=== PATIENT | male | born 1940 | race Caucasian/White ===

== ENCOUNTER → 2016-10-23 | Outpatient (CLI) | payer MEDICARE ==
[~2016-10-23] MED LIST: AMLO1CAP5; ATOR10TA PO; BIMA2.5D3; CYCL1DRO OP; LEVO500T69; METR500T
--- NOTE | 2016-10-25 09:36 | ECHOCARDIOGRAPHY REPORT ---
PROCEDURE PHYSICIAN: IVA CLINE DATE OF PROCEDURE: 10/23/2016 TWO DIMENSIONAL ECHOCARDIOGRAM REPORT PRIMARY PHYSICIAN: OTHER PHYSICIAN: REFERRING PHYSICIAN: Dr. Hwang ORDERING PHYSICIAN: INDICATION FOR THE PROCEDURE: Aortic regurgitation. MEASUREMENTS DERIVED VALUES LV DIAMETER (LAX) NORMALS NORMALS Diastolic 4.8 (3.6-5.2) Eject. Fract. 60% (60%+/-6%) Systolic (2.3-3.9) Diastolic Vol. % Shortening (0.22-0.42) Systolic Vol. Aortic Root IVS THICKNESS Diastolic 1.3 (0.6-1.1) LVPW THICKNESS Diastolic 1.3 (0.6-1.1) LA DIAMETER Systolic 3.9 (2.1-3.7) FINDINGS: 1. Technically difficult study. 2. The left ventricle is normal in size with moderate left ventricular hypertrophy noted diffusely. Systolic function appeared to be preserved, endocardium was not well visualized in all segments. Estimated ejection fraction 60%. 3. The left atrium is in the upper normal limit in size. No clot or thrombus were seen within the left atrium. 4. The right atrium and right ventricle are normal in size. No clot or thrombus were seen within the right side. 5. Mitral valve is calcified. There is no mitral valve prolapse. No mitral valve stenosis. 6. Aortic valve is heavily calcified, still having some leaflet separation during systole. Doppler across the aortic valve estimated the peak gradient of 49 mmHg, mean gradient of 27 mmHg, calculated valve area of 1.2 sq cm which is moderate aortic valve stenosis. Mild aortic regurgitation noted by color Doppler flow. 7. Tricuspid valve is normal in morphology with mild tricuspid regurgitation noted by color Doppler flow. Doppler across tricuspid valve estimated pulmonary artery pressure of 27+ right atrial pressure. 8. Pulmonic valve is functioning normally. 9. No pericardial effusion. IN CONCLUSION: 1. Moderate left ventricular hypertrophy noted diffusely. Systolic function appeared to be normal. Estimated ejection fraction 60%. Endocardium was not well visualized in all segments. 2. Moderate aortic valve stenosis, did not change significantly compared to the study of 2014. Mild aortic regurgitation. 3. Calcified mitral valve with mild mitral regurgitation, mild tricuspid regurgitation. 4. Left atrium is in the upper normal limit in size. 5. Estimated pulmonary artery pressure of 35 mmHg. Job ID: [id number] Dictated Date: 10/24/2016 14:48:08 Steeping Press Tender Date: 10/25/2016 09:32:41 / jackelyn
== END ==
LOC: CARD 09:31
PROVIDERS: ATTEND Internal Medicine Cardiovascular Disease
DX: I35.1 Nonrheumatic aortic (valve) insufficiency (principal); I11.0 Hypertensive heart disease with heart failure; I50.22 Chronic systolic (congestive) heart failure; E78.2 Mixed hyperlipidemia
CPT/HCPCS: 93306

== ENCOUNTER 2017-09-03 11:41 | Observation (INO) | payer MEDICARE, OTHER ==
[2017-09-03] VITALS (8 sets, daily range): BP systolic 162–188; BP diastolic 76–104
[~2017-09-03] VITALS: Ht 180.3 cm; Wt 123.8 kg
[~2017-09-03 11:41] MED LIST changes: -CYCL1DRO OP; +CYCL1DRO OU
[2017-09-03] MEDS ORDERED: LACTATED RINGERS 1,000 ML IV ONE (11:51)
--- OUTSIDE RECORDS SUMMARY | 2017-09-03 11:54 | XMS REPORT | Continuity of Care Document ---
Author Author [facility] Organization [facility] Address Unknown Phone Unavailable Allergies Active Description Code Type Severity Reaction Onset Reported/Identified Relationship to Patient Clinical Status Yes No Known Drug Allergies [id number] Drug Allergy Unknown N/A 07/23/2009 Medications There is no data. Problems Date Dx Coded Attending Type Code Diagnosis Diagnosed By 06/12/2015 WILLOUGHBY DO Ot E66.9 06/12/2015 WILLOUGHBY DO Ot E78.5 06/12/2015 WILLOUGHBY DO Ot G47.33 06/12/2015 WILLOUGHBY DO Ot I10 06/12/2015 WILLOUGHBY DO Ot I35.0 06/12/2015 WILLOUGHBY DO Ot I48.0 06/12/2015 WILLOUGHBY DO Ot K21.0 06/12/2015 WILLOUGHBY DO Ot Z68.38 06/12/2015 WILLOUGHBY DO Ot Z87.891 06/12/2015 WILLOUGHBY DO Ot Z91.14 10/24/2016 IVA CLINE MD Ot E78.2 MIXED HYPERLIPIDEMIA 10/24/2016 IVA CLINE MD Ot I11.0 HYPERTENSIVE HEART DISEASE WITH HEART FA 10/24/2016 IVA CLINE MD Ot I35.1 NONRHEUMATIC AORTIC (VALVE) INSUFFICIENC 10/24/2016 IVA CLINE MD Ot I50.22 CHRONIC SYSTOLIC (CONGESTIVE) HEART FAIL 10/24/2016 IVA CLINE MD Ot E78.2 MIXED HYPERLIPIDEMIA 10/24/2016 IVA CLINE MD Ot I11.0 HYPERTENSIVE HEART DISEASE WITH HEART FA 10/24/2016 IVA CLINE MD Ot I35.1 NONRHEUMATIC AORTIC (VALVE) INSUFFICIENC 10/24/2016 IVA CLINE MD Ot I50.22 CHRONIC SYSTOLIC (CONGESTIVE) HEART FAIL 11/23/2016 IVA CLINE MD Ot E78.2 MIXED HYPERLIPIDEMIA 11/23/2016 IVA CLINE MD Ot I11.0 HYPERTENSIVE HEART DISEASE WITH HEART FA 11/23/2016 IVA CLINE MD Ot I35.1 NONRHEUMATIC AORTIC (VALVE) INSUFFICIENC 11/23/2016 IVA CLINE MD Ot I50.22 CHRONIC SYSTOLIC (CONGESTIVE) HEART FAIL Procedures There is no data. Results There is no data. Encounters ACCT No. Visit Date/Time Discharge Status Pt. Type Provider Facility Loc./Unit Complaint [id number] 10/23/2016 09:31:00 10/23/2016 23:59:59 CLS Outpatient IVA CLINE MD [facility] CARD AR,CHF,HTN [id number] 06/11/2015 18:02:00 06/12/2015 17:00:00 DIS Inpatient SUNDAY WILLOUGHBY DO [address] [id number] 07/24/2013 20:50:00 07/25/2013 07:10:00 DIS Outpatient [id number] 11/01/2012 13:53:00 11/01/2012 23:59:59 CLS Outpatient
[2017-09-03 11:59] LABS: BASOPHILS # (AUTO) 0.1 10^3/uL (0.0-0.1); BASOPHILS % (AUTO) 1 % (0-10); EOSINOPHILS # (AUTO) 0.1 10^3/uL (0.0-0.3); EOSINOPHILS % (AUTO) 1 % (0-10); HEMATOCRIT 47 % (40-54); HEMOGLOBIN 15.8 G/DL (13.3-17.7); LYMPHOCYTES # (AUTO) 1.5 X 10^3 (1.0-4.0); LYMPHOCYTES % (AUTO) 20 % (12-44); MEAN CORPUSCULAR HEMOGLOBIN 31 PG (25-34); MEAN CORPUSCULAR HGB CONC 34 G/DL (32-36); MEAN CORPUSCULAR VOLUME 91 FL (80-99); MEAN PLATELET VOLUME 11.6 FL (7.4-10.4); MONOCYTES # (AUTO) 0.8 X 10^3 (0.0-1.0); MONOCYTES % (AUTO) 11 % (0-12); NEUTROPHILS # (AUTO) 5.2 X 10^3 (1.8-7.8); NEUTROPHILS % (AUTO) 68 % (42-75); PLATELET COUNT 165 10^3/uL (130-400); RED BLOOD COUNT 5.15 10^6/uL (4.35-5.85); RED CELL DISTRIBUTION WIDTH 14.7 % (10.0-14.5); WHITE BLOOD COUNT 7.6 10^3/uL (4.3-11.0)
--- NOTE | 2017-09-03 11:59 | ED Chest Pain ---
General Stated Complaint: CP/SOB Source: patient, spouse Exam Limitations: no limitations History of Present Illness Date Seen by Provider: Sep 03, 2017 Time Seen by Provider: 11:42 Initial Comments Patient presents to the ER by private conveyance with chief complaint of chest pain and shortness of breath started about an hour prior to arrival. He tried calling his primary care physician but they did not answer so he came to the ER. He says he does not have a history of coronary artery disease. He quit smoking decades ago. He does not have diabetes but he does have high blood pressure and takes benazepril which she did take his morning. He does not take a cholesterol medicine or aspirin however his gave him 325 mg of aspirin which she swallowed prior to arrival. He did not have any sweats, fevers, chills or nausea nor radiation of pain. He describes it as being substernal epigastric and first he thought it was from his bronchial tubes getting wrinkled from the way he was laying. He took a famotidine tablet on his way in but that has not helped yet. He does not have nitroglycerin at home. 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 He has had a thoracotomy in 1994 because they thought he might have lung cancer and did some biopsies of lymph nodes that turned out to be nonmalignant. He does not have a cough. He is having no diarrhea or other abdominal pain. He's had no abdominal surgeries. He does wear CPAP for obstructive sleep apnea endorse a history of COPD, asthma or other structural lung disease. He says after a case of diverticulitis many years ago he had an incidence of atrial fibrillation and they had shocked him however he has never had issues with that before or since and does not use any blood thinners. Last bowel movement was this morning, normal formed. Allergies and Home Medications Allergies Coded Allergies: No Known Drug Allergies (Verified , 07/23/09) Home Medications Atorvastatin Calcium 10 Mg Tablet, 10 MG PO EVERY OTHER DAY, (Reported) Benazepril HCl 40 Mg Tab, 40 MG PO DAILY, (Reported) Cyclosporine 1 Each Droperette, 1 EACH OP DAILY, (Reported) Review of Systems Constitutional: No chills, No diaphoresis, No fever, No malaise EENTM: No Blurred Vision, No Double Vision Respiratory: Denies Cough, Shortness of Air, Denies Stridor, Denies Wheezing Cardiovascular: See HPI, Chest Pain, Denies Edema, Denies Irregular Heart Rate , Denies Palpitations, Denies Syncope Gastrointestinal: Denies Abdomen Distended, Denies Abdominal Pain, Denies Constipated, Denies Diarrhea, Denies Nausea, Denies Vomiting Musculoskeletal: No back pain, No joint pain Skin: No pruritus, No rash Psychiatric/Neurological: Denies Headache, Denies Numbness, Denies Paresthesia Past Kzzijrl-Ckaadr-Lsatis Hx Patient Social History Recreational Drug Use: No Smoking Status: Former Smoker Type Used: Cigarettes Recent Foreign Travel: No Contact w/Someone Who Travel: No Immunizations Up To Date Date of Influenza Vaccine: May 09, 2015 Respiratory Respiratory Disorders: Sleep Apnea Currently Using CPAP: Yes Cardiovascular Cardiac Disorders: Atrial Fibrillation, Heart Murmur, Hypertension Neurological Neurological Disorders: Brain Tumor Reproductive System Hx Reproductive Disorders: No Sexually Transmitted Disease: No HIV/AIDS: No Gastrointestinal Gastrointestinal Disorders: Gastroesophageal Reflux Musculoskeletal Musculoskeletal Disorders: Arthritis HEENT HEENT Disorders: Glaucoma Loss of Vision: Denies Hearing Impairment: Denies Physical Exam Vital Signs Vital Signs - First Documented 09/03/17 09/03/17 11:45 12:04 Temp 98.9 Pulse 80 Resp 15 B/P (MAP) 207/113 (144) Pulse Ox 95 O2 Delivery Nasal Cannula O2 Flow Rate 2.00 Capillary Refill : General Appearance: No Apparent Distress, WD/WN, Anxious HEENT: PERRL/EOMI, Pharynx Normal (oral mucosa is dry.) Neck: Full Range of Motion, Non Tender, Supple Respiratory: Chest Non Tender, Lungs Clear, Normal Breath Sounds, No Accessory Muscle Use, No Respiratory Distress Cardiovascular: Regular Rate, Rhythm, No Edema, No JVD, Normal Peripheral Pulses Gastrointestinal: Normal Bowel Sounds, No Organomegaly, Non Tender, Soft Extremity: Normal Capillary Refill, Normal Inspection, Non Tender, No Calf Tenderness, No Pedal Edema Neurologic/Psychiatric: Alert, Oriented x3, No Motor/Sensory Deficits, Normal Mood/Affect Skin: Normal Color, Warm/Dry Progress/Results/Core Measures Results/Orders Lab Results Laboratory Tests Test 09/03/17 11:51 Range/Units White Blood Count 7.6 4.3-11.0 10^3/uL Red Blood Count 5.15 4.35-5.85 10^6/uL Hemoglobin 15.8 13.3-17.7 G/DL Hematocrit 47 40-54 % Mean Corpuscular Volume 91 80-99 FL Mean Corpuscular Hemoglobin 31 25-34 PG Mean Corpuscular Hemoglobin Concent 34 32-36 G/DL Red Cell Distribution Width 14.7 H 10.0-14.5 % Platelet Count 165 130-400 10^3/uL Mean Platelet Volume 11.6 H 7.4-10.4 FL Neutrophils (%) (Auto) 68 42-75 % Lymphocytes (%) (Auto) 20 12-44 % Monocytes (%) (Auto) 11 0-12 % Eosinophils (%) (Auto) 1 0-10 % Basophils (%) (Auto) 1 0-10 % Neutrophils # (Auto) 5.2 1.8-7.8 X 10^3 Lymphocytes # (Auto) 1.5 1.0-4.0 X 10^3 Monocytes # (Auto) 0.8 0.0-1.0 X 10^3 Eosinophils # (Auto) 0.1 0.0-0.3 10^3/uL Basophils # (Auto) 0.1 0.0-0.1 10^3/uL Prothrombin Time 15.7 H 12.2-14.7 SEC INR Comment 1.2 0.8-1.4 Activated Partial Thromboplast Time 31 24-35 SEC Sodium Level 142 135-145 MMOL/L Potassium Level 4.0 3.6-5.0 MMOL/L Chloride Level 107 98-107 MMOL/L Carbon Dioxide Level 23 21-32 MMOL/L Anion Gap 12 5-14 MMOL/L Blood Urea Nitrogen 13 7-18 MG/DL Creatinine 1.03 0.60-1.30 MG/DL Estimat Glomerular Filtration Rate > 60 BUN/Creatinine Ratio 13 Glucose Level 102 70-105 MG/DL Calcium Level 9.8 8.5-10.1 MG/DL Magnesium Level 2.0 1.8-2.4 MG/DL Total Bilirubin 1.9 H 0.1-1.0 MG/DL Aspartate Amino Transf (AST/SGOT) 24 5-34 U/L Alanine Aminotransferase (ALT/SGPT) 20 0-55 U/L Alkaline Phosphatase 91 40-136 U/L Myoglobin 91.5 10.0-92.0 NG/ML Troponin I < 0.30 <0.30 NG/ML Total Protein 6.8 6.4-8.2 GM/DL Albumin 4.1 3.2-4.5 GM/DL Lipase 12 8-78 U/L My Orders Orders - ABDIEL HART Tariq Cbc With Automated Diff (09/03/17 11:51) Magnesium (09/03/17 11:51) Chest 1 View, Ap/Pa Only (09/03/17 11:51) Ekg Tracing (09/03/17 11:51) Cardiac Profile 1 (09/03/17 11:51) Comprehensive Metabolic Panel (09/03/17 11:51) Myoglobin Serum (09/03/17 11:51) Protime With Inr (09/03/17 11:51) Partial Thromboplastin Time (09/03/17 11:51) O2 (09/03/17 11:51) Monitor-Rhythm Ecg Trace Only (09/03/17 11:51) Lipid Panel (09/04/17 06:00) Aspirin Chewable Tablet (Baby Aspirin Ch (09/03/17 12:00) Nitroglycerin 0.4 Mg Btl 25's (Nitrostat (09/03/17 12:00) Saline Lock/Iv-Start (09/03/17 11:51) Lipase (09/03/17 11:51) Saline Lock/Iv-Start (09/03/17 11:51) Lactated Ringers (Lr 1000 Ml Iv Solution (09/03/17 11:51) Medications Given in ED Current Medications Medications Dose Ordered Sig/Rui Route Start Time Stop Time Status Last Admin Dose Admin Aspirin 162 mg ONCE ONCE PO 09/03/17 12:00 09/03/17 12:01 DC 09/03/17 11:59 162 MG Lactated Ringer's 1,000 ml @ 0 mls/hr Q0M ONCE IV 09/03/17 11:51 09/03/17 11:54 DC 09/03/17 11:59 0 MLS/HR Nitroglycerin 0.4 mg UD PRN SL 09/03/17 12:00 09/03/17 11:59 0.4 MG Vital Signs/I&O Vital Sign - Last 12Hours 09/03/17 09/03/17 11:45 12:04 Temp 98.9 Pulse 80 Resp 15 B/P (MAP) 207/113 (144) Pulse Ox 95 95 O2 Delivery Nasal Cannula Nasal Cannula O2 Flow Rate 2.00 2.00 Progress Note #1: Time: 12:01 Progress Note ED ACS score of 22 points which is not low risk and he'll probably benefit from observation stay his initial troponin is negative. While he is having mild tachycardia, shortness of breath and chest pain he does not have any evidence of a DVT or reason to have one. He is not in atrial fibrillation presently. Pulmonary embolus is not the most likely cause of his pain. We'll think about cardiogenic versus respiratory versus GI causes. If the nitroglycerin does not make a difference in his pain will try a GI cocktail. We'll going to go ahead and give him another 162 mg of aspirin despite him receiving 325 at home and have him chew up the aspirin and swallow. Progress Note #2: Time: 13:14 Progress Note Patient has a history of GERD which may be causing bronchospasms or may be organic chest pain to the heart. Because of his risk factors will merit an overnight stay which he is willing to do. However if his pain is not cardiogenic likely benefit from medical management and an EGD outpatient. ECG Initial ECG Impression Date: Sep 03, 2017 Initial ECG Impression Time: 11:42 Initial ECG Rate: 107 Initial ECG Rhythm: S.Tach Initial ECG Intervals: QT (51.) Initial ECG Impression: Nonspecific Changes Initial ECG Comparisson: Unchanged Diagnostic Imaging Diagonstic Imaging: Xray Plain Films/CT/US/NM/MRI: chest (1v) Comments [facility]. [place], [place] NAME: JOSEE ESCOBEDO [facility] REC#: [id number] PT STATUS: REG ER : 1940 PHYSICIAN: ABDIEL HART MD ADMIT DATE: 09/03/17/ER Draft Date of Exam:09/03/17 CHEST 1 VIEW, AP/PA ONLY INDICATION: Chest pain. Shortness of air. COMPARISON: 06/11/2015. FINDINGS: Single frontal radiographic view of the chest was obtained and demonstrates moderate cardiomegaly. Pulmonary vasculature is within normal limits. Lung brown are partially obscured secondary to overlying soft tissue attenuation, but no focal alveolar consolidation, large effusion, or pneumothorax is identified. Bony structures show no gross acute abnormalities. IMPRESSION: 1. Moderate cardiomegaly, but no evidence of overt failure. Dictated on workstation # [id number] Dict: 09/03/17 1245 Trans: 09/03/17 1251 [id number] Interpreted by: CHRISTIANE HODGES MD Electronically signed by: Reviewed: Reviewed by Me Departure Communication (Admissions) Time/Spoke to Admitting Phy: 13:[address] Hamm; discussed the case and EKG lab findings and plan to do an observation stay. Time/Spoke to Consulting Phy: 13:16 Communication/Consulting Dr. Delgado says he'll see the patient probably after clinic today. He agrees with observation stay. Impression Impression: Primary Impression: Chest pain Qualified Codes: R07.9 - Chest pain, unspecified Additional Impression: Gastroesophageal reflux disease Qualified Codes: K21.9 - Gastro-esophageal reflux disease without esophagitis Disposition: ADMITTED INPATIENT Condition: Stable Admissions Decision to Admit Reason: Admit from ER (General) Decision to Admit/Date: Sep 03, 2017 Time/Decision to Admit Time: 13:18 Departure-Patient Inst. Referrals: SUNDAY WILLOUGHBY DO (PCP/Family) Primary Care Physician Copy Copies To 1: IVA DELGADO MD Copies To 2: SUNDAY WILLOUGHBY TITUS J Sep 03, 2017 11:59
[2017-09-03] MEDS ORDERED: NITROGLYCERIN 0.4 MG SL TABS BTL 25'S SL PRN (12:00)
[2017-09-03] MEDS ORDERED: ASPIRIN 81 MG CHEW (CHILDREN'S ASA) PO ONE (12:00)
[2017-09-03 12:10] LABS: INR 1.2 (0.8-1.4); PROTHROMBIN TIME PATIENT 15.7 SEC (12.2-14.7)
[2017-09-03] MEDS ORDERED: BNZ40T PO (12:17)
[2017-09-03 12:19] LABS: ALANINE AMINOTRANSFERASE 20 U/L (0-55); ALBUMIN 4.1 GM/DL (3.2-4.5); ALKALINE PHOSPHATASE 91 U/L (40-136); BILIRUBIN,TOTAL 1.9 MG/DL (0.1-1.0); BUN/CREATININE RATIO 13; CALCIUM 9.8 MG/DL (8.5-10.1); CARBON DIOXIDE 23 MMOL/L (21-32); CHLORIDE 107 MMOL/L (98-107); CREATININE SERUM 1.03 MG/DL (0.60-1.30); GFR ESTIMATED > 60; GLUCOSE 102 MG/DL (70-105); LIPASE 12 U/L (8-78); SODIUM 142 MMOL/L (135-145); TOTAL PROTEIN 6.8 GM/DL (6.4-8.2)
[2017-09-03 12:25] LABS: MYOGLOBIN SERUM 91.5 NG/ML (10.0-92.0)
--- NOTE | 2017-09-03 12:52 | Diagnostic Imaging Report ---
INDICATION: Chest pain. Shortness of air. COMPARISON: 06/11/2015. FINDINGS: Single frontal radiographic view of the chest was obtained and demonstrates moderate cardiomegaly. Pulmonary vasculature is within normal limits. Lung borwn are partially obscured secondary to overlying soft tissue attenuation, but no focal alveolar consolidation, large effusion, or pneumothorax is identified. Bony structures show no gross acute abnormalities. IMPRESSION: 1. Moderate cardiomegaly, but no evidence of overt failure. Dictated by: Dictated on workstation # [id number]
--- OUTSIDE RECORDS SUMMARY | 2017-09-03 13:51 | XMS REPORT | Continuity of Care Document ---
Author Author [facility] Organization [facility] Address Unknown Phone Unavailable Allergies Active Description Code Type Severity Reaction Onset Reported/Identified Relationship to Patient Clinical Status Yes No Known Drug Allergies [id number] Drug Allergy Unknown N/A 07/23/2009 Medications There [...] SYSTOLIC (CONGESTIVE) HEART FAIL 11/23/2016 IVA CLINE MD, Ot E78.2 MIXED HYPERLIPIDEMIA 11/23/2016 IVA CLINE MD, Ot I11.0 HYPERTENSIVE HEART DISEASE WITH HEART FA 11/23/2016 IVA CLINE MD, Ot I35.1 NONRHEUMATIC AORTIC (VALVE) INSUFFICIENC 11/23/2016 IVA CLINE MD, Ot I50.22 CHRONIC SYSTOLIC (CONGESTIVE) HEART FAIL Procedures There is no data. Results Test Result Range Complete blood count (CBC) with automated white blood cell (WBC) differential - 09/03/17 11:51 Blood leukocytes automated count (number/volume) 7.6 10*3/uL 4.3-11.0 Blood erythrocytes automated count (number/volume) 5.15 10*6/uL 4.35-5.85 Venous blood hemoglobin measurement (mass/volume) 15.8 g/dL 13.3-17.7 Blood hematocrit (volume fraction) 47 % 40-54 Automated erythrocyte mean corpuscular volume 91 [foz_us] 80-99 Automated erythrocyte mean corpuscular hemoglobin (mass per erythrocyte) 31 pg 25-34 Automated erythrocyte mean corpuscular hemoglobin concentration measurement ( mass/volume) 34 g/dL 32-36 Automated erythrocyte distribution width ratio 14.7 % 10.0-14.5 Automated blood platelet count (count/volume) 165 10*3/uL 130-400 Automated blood platelet mean volume measurement 11.6 [foz_us] 7.4-10.4 Automated blood neutrophils/100 leukocytes 68 % 42-75 Automated blood lymphocytes/100 leukocytes 20 % 12-44 Blood monocytes/100 leukocytes 11 % 0-12 Automated blood eosinophils/100 leukocytes 1 % 0-10 Automated blood basophils/100 leukocytes 1 % 0-10 Blood neutrophils automated count (number/volume) 5.2 10*3 1.8-7.8 Blood lymphocytes automated count (number/volume) 1.5 10*3 1.0-4.0 Blood monocytes automated count (number/volume) 0.8 10*3 0.0-1.0 Automated eosinophil count 0.1 10*3/uL 0.0-0.3 Automated blood basophil count (count/volume) 0.1 10*3/uL 0.0-0.1 PT panel in platelet poor plasma by coagulation assay - 09/03/17 11:51 Prothrombin time (PT) in platelet poor plasma by coagulation assay 15.7 s 12.2-14.7 INR in platelet poor plasma or blood by coagulation assay 1.2 0.8-1.4 Activated partial thromboplastin time (aPTT) in platelet poor plasma bycoagulation assay - 09/03/17 11:51 Activated partial thromboplastin time (aPTT) in platelet poor plasma bycoagulation assay 31 s 24-35 Comprehensive metabolic panel - 09/03/17 11:51 Serum or plasma sodium measurement (moles/volume) 142 mmol/L 135-145 Serum or plasma potassium measurement (moles/volume) 4.0 mmol/L 3.6-5.0 Serum or plasma chloride measurement (moles/volume) 107 mmol/L 98-107 Carbon dioxide 23 mmol/L 21-32 Serum or plasma anion gap determination (moles/volume) 12 mmol/L 5-14 Serum or plasma urea nitrogen measurement (mass/volume) 13 mg/dL 7-18 Serum or plasma creatinine measurement (mass/volume) 1.03 mg/dL 0.60-1.30 Serum or plasma urea nitrogen/creatinine mass ratio 13 NRG Serum or plasma creatinine measurement with calculation of estimated glomerular filtration rate > NRG Serum or plasma glucose measurement (mass/volume) 102 mg/dL 70-105 Serum or plasma calcium measurement (mass/volume) 9.8 mg/dL 8.5-10.1 Serum or plasma total bilirubin measurement (mass/volume) 1.9 mg/dL 0.1-1.0 Serum or plasma alkaline phosphatase measurement (enzymatic activity/volume) 91 U/L 40-136 Serum or plasma aspartate aminotransferase measurement (enzymatic activity/ volume) 24 U/L 5-34 Serum or plasma alanine aminotransferase measurement (enzymatic activity/volume ) 20 U/L 0-55 Serum or plasma protein measurement (mass/volume) 6.8 g/dL 6.4-8.2 Serum or plasma albumin measurement (mass/volume) 4.1 g/dL 3.2-4.5 Magnesium - 09/03/17 11:51 Magnesium 2.0 mg/dL 1.8-2.4 Serum or plasma troponin i.cardiac measurement (mass/volume) - 09/03/17 11:51 Serum or plasma troponin i.cardiac measurement (mass/volume) < ng/ mL <0.30 Myoglobin, serum - 09/03/17 11:51 Myoglobin, serum 91.5 ng/mL 10.0-92.0 Lipase - 09/03/17 11:51 Lipase 12 U/L 8-78 Encounters ACCT No. Visit Date/Time Discharge Status Pt. Type Provider Facility Loc./Unit Complaint [id number] 10/23/2016 09:31:00 10/23/2016 23:59:59 CLS Outpatient MARLYN SHORT, IVA Potter [facility] AR,CHF,HTN [id number] 06/11/2015 18:02:00 06/12/2015 17:00:00 DIS Inpatient SUNDAY WILLOUGHBY DO [address] [id number] 07/24/2013 20:50:00 07/25/2013 07:10:00 DIS Outpatient [id number] 11/01/2012 13:53:00 11/01/2012 23:59:59 CLS Outpatient [id number] 09/03/2017 12:02:00 Document Registration
--- NOTE | 2017-09-03 14:34 | History & Physical-Hospitalist ---
HPI History of Present Illness: HPI/Chief Complaint Pt is a 76yoCM with a PMH of HTN and GERD who presented to the ER with CC of chest pain. He reports that he has a history of GERD and will get chest tightness and SOB with his GERD. It normally resolves as soon as he takes famotidine and tums. He woke up with chest pain this AM and took his normal Famotidine and Tums without relief. He was also SOB but was able to go to the [facility] and swim. His chest pain did not worsen with this but did not resolve. When he returned his home his gave him a full dose ASA and prompted him to seek evaluation in the ER. Upon arrival here he was given Nitro and his pain subsided completely. He no longer has chest pain. He does have very high blood pressures but is not currently symptomatic from it. He reports he did take his benazepril today at 11am and does not regularly miss his medicines. Source: patient, family Exam Limitations: no limitations Date Seen 09/03/17 Time Seen by Provider: 14:10 Attending Physician Reyna Hamm MD PCP Dre Hwang DO Referring Physician Date of Admission Sep 03, 2017 at 1:47 pm Home Medications & Allergies Home Medications Reviewed patient Home Medication Reconciliation Form Allergies Allergies Coded Allergies No Known Drug Allergies (Verified07/23/09) Past Uapppol-Pcvbai-Nxozmy Hx Patient Social History Marrital Status: Employed/Student: employed (teaches golf lessons) Alcohol Use: Denies Use Recreational Drug Use: No Smoking Status: Former Smoker Former Smoker, Quit: Aug 25, 1980 Type Used: Cigarettes Recent Foreign Travel: No Contact w/other who traveled: No Recent Hopitalizations: Yes Recent Infectious Disease Expo: No Immunizations Up To Date Date of Influenza Vaccine: May 09, 2015 Surgeries Yes (MIN THORACOTOMY, KNEE SX WHEN A CHILD) Orthopedic (knee x2) Respiratory No (USES CPAP) Currently Using CPAP: Yes Cardiovascular Yes Atrial Fibrillation, Heart Murmur, Hypertension Neurological No Reproductive System Hx Reproductive Disorders: No Sexually Transmitted Disease: No HIV/AIDS: No Genitourinary No Gastrointestinal Yes Gastroesophageal Reflux, Diverticulosis, Polyps Musculoskeletal Yes Arthritis Endocrine History of Endocrine Disorders: No HEENT History of HEENT Disorders: No HEENT Disorders: Glaucoma Loss of Vision: Denies Hearing Impairment: Denies Cancer No Psychosocial History of Psychiatric Problem: No Integumentary History of Skin or Integumenta: No Blood Transfusions History of Blood Disorders: No Family Medical History Significant Family History: Heart Disease (mother- 5 vessel CABG), CAD Over 55 Years Old, CVA (father in 40s) Review of Systems Constitutional: No chills, No diaphoresis, No fever EENTM: No blurred vision, No double vision, No nose congestion, No throat pain Respiratory: No cough, No dyspnea on exertion, short of breath, wheezing Cardiovascular: chest pain, No edema, No palpitations Gastrointestinal: abdominal pain, No constipation, No diarrhea, No nausea, No vomiting Genitourinary: No dysuria, No frequency Musculoskeletal: No joint pain, No muscle pain Skin: No lesions, No rash Psychiatric/Neurological: Denies Headache, Denies Numbness, Denies Tingling Physical Exam Physical Exam Vital Signs Vital Signs - First Documented 09/03/17 09/03/17 11:45 12:04 Temp 98.9 Pulse 80 Resp 15 B/P (MAP) 207/113 (144) Pulse Ox 95 O2 Delivery Nasal Cannula O2 Flow Rate 2.00 Capillary Refill : Less Than 3 Seconds General Appearance: No Apparent Distress, WD/WN, Obese HEENT: PERRL/EOMI, Moist Mucous Membranes, No Scleral Icterus (L), No Scleral Icterus (R) Neck: Non Tender, Supple Respiratory: Chest Non Tender, Lungs Clear, No Respiratory Distress, No Wheezing Cardiovascular: No JVD, No Murmur, Irregularly Irregular Gastrointestinal: Normal Bowel Sounds, Non Tender, Soft Extremity: Normal Range of Motion, Non Tender, No Pedal Edema Neurologic/Psychiatric: Alert, Oriented x3, Normal Mood/Affect Skin: Normal Color, Warm/Dry Results Results/Procedures Lab Laboratory Tests 09/03/17 11:51 Radiology Date of Exam:09/03/17 CHEST 1 VIEW, AP/PA ONLY INDICATION: Chest pain. Shortness of air. COMPARISON: 06/11/2015. FINDINGS: Single frontal radiographic view of the chest was obtained and demonstrates moderate cardiomegaly. Pulmonary vasculature is within normal limits. Lung brown are partially obscured secondary to overlying soft tissue attenuation, but no focal alveolar consolidation, large effusion, or pneumothorax is identified. Bony structures show no gross acute abnormalities. IMPRESSION: 1. Moderate cardiomegaly, but no evidence of overt failure. Assessment/Plan Admission Diagnosis Chest Pain Admission Status: Observation Diagnosis/Problems Diagnosis/Problems (1) Chest pain Status: Acute Assessment & Plan: Concerning for cardiac etiology given improvement with nitro Admit for obs Cardiology consulted, appreciate recs troponin negative x1, will trend Qualifiers: Qualified Codes: R07.9 - Chest pain, unspecified (2) Hypertensive urgency Assessment & Plan: BP very elevated during my exam but chest pain resolved and no other symptoms Took home Benazepril this AM Will add nitropaste prn (3) Gastroesophageal reflux disease Status: Acute Assessment & Plan: Continue home famotidine Qualifiers: Qualified Codes: K21.9 - Gastro-esophageal reflux disease without esophagitis (4) Prophylactic measure Assessment & Plan: SCDs Cardiac Diet, NPO after midnight Saline lock Clinical Quality Measures AMI/AHF: ASA po Prior to arrival: Yes (325 MG ASA) REYNA HAMM MD Sep 03, 2017 14:34
[2017-09-03] MEDS ORDERED: morphine INJ 10 MG/ML 1ML (SYR OR VIAL) IVP PRN (14:45)
[2017-09-03] MEDS ORDERED: PATIENT MAY USE OWN MEDS, ALL PO SCH (14:45)
[2017-09-03] MEDS ORDERED: NITROGLYCERIN 2% OINT 1 GM UNIT DOSE PACKET TOP PRN (14:45)
[2017-09-03] MEDS ORDERED: ONDANSETRON 4 MG/2 ML (SDV) Z0FRAN IVP PRN (14:45)
[2017-09-03] MEDS ORDERED: BIMA2.5D4 OU (14:58)
[2017-09-03] MEDS ORDERED: NAPR220T66 PO (15:00)
[2017-09-03] MEDS ORDERED: ASCO-262 PO (15:00)
[2017-09-03] MEDS ORDERED: DIPH25TA65 PO (15:00)
[2017-09-03] MEDS ORDERED: LUTE20TA PO (15:00)
[2017-09-03] MEDS ORDERED: CHOL10007 PO (15:00)
[2017-09-03] MEDS ORDERED: inSUlin ASPART (NovoLOG) 1 UNIT/0.01 ML (CHARGE PER UNIT) SC SCH (16:00)
--- NOTE | 2017-09-03 16:50 | Consultation-Cardiology ---
HPI-Cardiology Cardiology Consultation Date of Consultation 09/03/17 Date of Admission Time Seen by Provider: 16:45 Indication: Chest pain HPI 76-year-old gentleman with history of aortic valve stenosis, hypertension, hyperlipidemia and gastroesophageal reflux disease. He has been having multiple episodes of tightness in his chest and shortness of breath responding to antiacid usually. Reporting improvement until this morning where he felt some tightness in the retrosternal area that was not radiating and did not improve with sublingual nitroglycerin. Came into the emergency room and felt better after receiving sublingual nitroglycerin and GI cocktail. He is currently feeling well. Denied any further episode. No shortness of breath. No recent cardiac workup except for echocardiogram for his aortic stenosis done in October 2016. Home Medications & Allergies Allergies: Coded Allergies: No Known Drug Allergies (Verified , 07/23/09) Home Medication List Reviewed: Yes OSI-Tdutgv-Mzoloj Hx Patient Social History Marital Status: Employed/Student: employed (teaches golf lessons) Alcohol Use: Denies Use Recreational Drug Use: No Smoking Status: Former Smoker Former smoker/When Quit: Jun 22, 1983 Type Used: Cigarettes Recent Foreign Travel: No Recent Infectious Disease Expo: No Recent Hopitalizations: Yes Physical Abuse Screen: No Sexual Abuse: No Immunizations Up To Date Date of Pneumonia Vaccine: Aug 31, 2017 Date of Influenza Vaccine: Apr 08, 2017 Past Medical History Medical history as discussed below Family Medical History Significant Family History: Heart Disease (mother- 5 vessel CABG), CAD Over 55 Years Old, CVA (father in 40s) Constitutional: no symptoms reported, see HPI EENTM: see HPI, no symptoms reported Respiratory: see HPI, No cough, dyspnea on exertion, No hemoptysis, No orthopnea, No phlegm, No short of breath, No stridor, No wheezing, No other Cardiovascular: see HPI, chest pain, No edema, No Hx of Intervention, No palpitations, No syncope, No vascular heart diseas, No other Gastrointestinal: no symptoms reported, see HPI Genitourinary: no symptoms reported, see HPI Musculoskeletal: no symptoms reported, see HPI Skin: no symptoms reported, see HPI Psychiatric/Neurological: No Symptoms Reported, See HPI Reviewed Test Results Reviewed Test Results Lab Laboratory Tests Test 09/03/17 11:51 09/03/17 15:47 Range/Units White Blood Count 7.6 4.3-11.0 10^3/uL Red Blood Count 5.15 4.35-5.85 10^6/uL Hemoglobin 15.8 13.3-17.7 G/DL Hematocrit 47 40-54 % Mean Corpuscular Volume 91 80-99 FL Mean Corpuscular Hemoglobin 31 25-34 PG Mean Corpuscular Hemoglobin Concent 34 32-36 G/DL Red Cell Distribution Width 14.7 H 10.0-14.5 % Platelet Count 165 130-400 10^3/uL Mean Platelet Volume 11.6 H 7.4-10.4 FL Neutrophils (%) (Auto) 68 42-75 % Lymphocytes (%) (Auto) 20 12-44 % Monocytes (%) (Auto) 11 0-12 % Eosinophils (%) (Auto) 1 0-10 % Basophils (%) (Auto) 1 0-10 % Neutrophils # (Auto) 5.2 1.8-7.8 X 10^3 Lymphocytes # (Auto) 1.5 1.0-4.0 X 10^3 Monocytes # (Auto) 0.8 0.0-1.0 X 10^3 Eosinophils # (Auto) 0.1 0.0-0.3 10^3/uL Basophils # (Auto) 0.1 0.0-0.1 10^3/uL Prothrombin Time 15.7 H 12.2-14.7 SEC INR Comment 1.2 0.8-1.4 Activated Partial Thromboplast Time 31 24-35 SEC Sodium Level 142 135-145 MMOL/L Potassium Level 4.0 3.6-5.0 MMOL/L Chloride Level 107 98-107 MMOL/L Carbon Dioxide Level 23 21-32 MMOL/L Anion Gap 12 5-14 MMOL/L Blood Urea Nitrogen 13 7-18 MG/DL Creatinine 1.03 0.60-1.30 MG/DL Estimat Glomerular Filtration Rate > 60 BUN/Creatinine Ratio 13 Glucose Level 102 70-105 MG/DL Calcium Level 9.8 8.5-10.1 MG/DL Magnesium Level 2.0 1.8-2.4 MG/DL Total Bilirubin 1.9 H 0.1-1.0 MG/DL Aspartate Amino Transf (AST/SGOT) 24 5-34 U/L Alanine Aminotransferase (ALT/SGPT) 20 0-55 U/L Alkaline Phosphatase 91 40-136 U/L Myoglobin 91.5 10.0-92.0 NG/ML Troponin I < 0.30 <0.30 NG/ML Total Protein 6.8 6.4-8.2 GM/DL Albumin 4.1 3.2-4.5 GM/DL Lipase 12 8-78 U/L Physical Exam Vital Signs Vital Signs - First Documented 09/03/17 09/03/17 11:45 12:04 Temp 98.9 Pulse 80 Resp 15 B/P (MAP) 207/113 (144) Pulse Ox 95 O2 Delivery Nasal Cannula O2 Flow Rate 2.00 Capillary Refill : Less Than 3 Seconds General Appearance: No Apparent Distress, WD/WN Eyes: Bilateral Eye Normal Inspection, Bilateral Eye PERRL, Bilateral Eye EOMI HEENT: PERRL/EOMI, TMs Normal, Normal ENT Inspection, Pharynx Normal Neck: Full Range of Motion, Normal Inspection, Non Tender, Supple, Carotid Bruit Respiratory: Chest Non Tender, Lungs Clear, Normal Breath Sounds, No Accessory Muscle Use, No Respiratory Distress Cardiovascular: Regular Rate, Rhythm, No Edema, No Gallop, No JVD, Normal Peripheral Pulses, Systolic Murmur (Aortic stenosis) Gastrointestinal: Normal Bowel Sounds, No Organomegaly, No Pulsatile Mass, Non Tender, Soft Back: Normal Inspection, No CVA Tenderness, No Vertebral Tenderness Extremity: Normal Capillary Refill, Normal Inspection, Normal Range of Motion, Non Tender, No Calf Tenderness, No Pedal Edema Neurologic/Psychiatric: Alert, Oriented x3, No Motor/Sensory Deficits, Normal Mood/Affect Skin: Normal Color, Warm/Dry Lymphatic: No Adenopathy A/P-Cardiology Admission Diagnosis Chest pain nonspecific etiology Aortic valve stenosis Paroxysmal atrial fibrillation GERD Admission Status: Observation Assessment/Plan Chest pain nonspecific etiology, atypical in presentation, no recent cardiac workup, planning to evaluate stress test. Gastroesophageal reflux disease, has been using [id number] antiacids. Discussed in length about the need for endoscopy in the near future. Aortic valve stenosis, moderate per echocardiogram in October 2016, planning to repeat echocardiogram. History of Paroxysmal atrial fibrillation, status post cardioversion 2009, has been asymptomatic, refusing anticoagulation, intolerant to Beta Blockers, no further episode of atrial fibrillation were reported Hypertension, I will restart his blood pressure medication and monitor Hyperlipidemia, I will evaluate lipid profile and metabolic profile Moderate LVH-continue to monitor. COPD/obstructive sleep apnea using C Pap. Followed by primary care physician Intolerance to beta blockers causing severe bradycardia History of diverticulosis Carotid artery stenosis-patient reports recent carotid duplex done in Dr. Hwang's office. Clinical Quality Measures AMI/AHF: ASA po Prior to arrival: Yes (325 MG ASA) DVT/VTE Risk/Contraindication: Risk Factor Score Per Nursin RFS Level Per Nursing on Admit: 2=Moderate IVA CLINE MD Sep 03, 2017 16:50
[2017-09-03] MEDS ORDERED: PANTOPRAZOLE 40 MG (PROTONIX) TAB PO NR (17:00)
[2017-09-03] MEDS ORDERED: ATORVASTATIN 10 MG (LIPITOR) TABLET PO SCH (17:00)
[2017-09-04 00:01] VITALS: BP 166/84
[2017-09-04 04:00] VITALS: BP_SYST 166; BP_SYST 168; BP_DIAS 88; BP_DIAS 90
[2017-09-04 06:33] LABS: HEMOGLOBIN 14.3 G/DL (13.3-17.7); RED BLOOD COUNT 4.61 10^6/uL (4.35-5.85); RED CELL DISTRIBUTION WIDTH 14.5 % (10.0-14.5); WHITE BLOOD COUNT 5.3 10^3/uL (4.3-11.0)
[2017-09-04 06:42] LABS: BUN/CREATININE RATIO 14; CALCIUM 9.8 MG/DL (8.5-10.1); CARBON DIOXIDE 26 MMOL/L (21-32); CHLORIDE 106 MMOL/L (98-107); CHOLESTEROL 134 MG/DL (< 200); CREATININE SERUM 0.98 MG/DL (0.60-1.30); GFR ESTIMATED > 60; GLUCOSE 89 MG/DL (70-105); HDL CHOLESTEROL 41 MG/DL (40-60); POTASSIUM 3.6 MMOL/L (3.6-5.0); SODIUM 141 MMOL/L (135-145); TRIGLYCERIDES 58 MG/DL (<150); VLDL CHOLESTEROL 12 MG/DL (5-40)
[2017-09-04] MEDS: CATHETER FLUSH 10 ML SYR IV PRN ×2 (06:50→07:59)
[2017-09-04 07:58] VITALS: BP 163/102
[2017-09-04] MEDS ORDERED: REGADENOSON 0.4 MG/5 ML SYR (LEXISCAN) IV ONE (08:00)
[2017-09-04] MEDS ORDERED: NON-FORMULARY MEDICATION 1 EA EA (Benazepril HCl 40 MG) PO SCH (09:00)
[2017-09-04] MEDS: ASPIRIN E.C. 325 MG (ECOTRIN) TABLET PO SCH ×2 (09:45→09:53)
[2017-09-04] MEDS: lisINopril 40 MG (PRINIVIL) TABLET PO SCH ×2 (09:45→09:53)
[2017-09-04] MEDS: PANTOPRAZOLE 40 MG (PROTONIX) TAB PO SCH ×2 (09:45→09:53)
[2017-09-04] MEDS ORDERED: NS IV 1000 ML 1,000 ML IV SCH ×2 (12:00→12:15)
[2017-09-04] MEDS ORDERED: FAMOTIDINE 20 MG (PEPCID) TABLET PO PRN ×2 (12:00→12:30)
[2017-09-04] MEDS ORDERED: ASPIRIN E.C. 325 MG (ECOTRIN) TABLET PO SCH (12:18)
[2017-09-04] MEDS ORDERED: BENAZEPRIL 40 MG PO SCH (12:25)
--- NOTE | 2017-09-04 13:55 | Cardiology Progress Note ---
Subjective Date Seen by Provider: Sep 04, 2017 Time Seen by Provider: 13:54 Subjective/Events-last exam Patient is feeling better. Underwent stress test which was abnormal, we discussed management plan he will be scheduled for cardiac catheterization, asked to go home returned the next day Review of Systems General: No Chills, No Night Sweats, No Fatigue, No Malaise, No Appetite, No Other HEENT: No Head Aches, No Visual Changes, No Ear Pain, No Dysphasia, No Sinus Congestion, No Post Nasal Drip, No Sore Throat, No Other Pulmonary: Dyspnea, No Cough, No Pleuritic Chest Pain, No Other Cardiovascular: Chest Pain, No: Palpitations, Orthopnea, Paroxysmal Noc. Dyspnea, Edema, Lt Headedness, Other Objective-Cardiology Exam Last Set of Vital Signs Vital Signs 09/03/17 09/04/17 09/04/17 12:04 04:00 07:58 Temp 96.8 Pulse 76 Resp 16 B/P (MAP) 163/102 (122) Pulse Ox 96 O2 Delivery Room Air O2 Flow Rate 2.00 Capillary Refill : Less Than 3 Seconds I&O Intake and Output 09/04/17 00:00 Intake Total 1940 ml Balance 1940 ml Intake Oral 940 ml IV Total 1000 ml # Voids 3 # Bowel Movements 2 Daily Weight Change No General: Alert, Oriented X3, Cooperative HEENT: Atraumatic, PERRLA Neck: Supple, No JVD, No Thyromegaly Lungs: Clear to Auscultation, Normal Air Movement Heart: Regular Rate, Normal S1, Normal S2, No Murmurs Abdomen: Normal Bowel Sounds, Soft, No Tenderness, No Hepatosplenomegaly, No Masses Extremities: No Clubbing, No Cyanosis, No Edema, Normal Pulses, No Tenderness/ Swelling Skin: No Rashes, No Breakdown, No Significant Lesion Neuro: Normal Gait, Normal Speech, Strength at 5/5 X4 Ext, Normal Tone, Sensation Intact Psych/Mental Status: Mental Status NL, Mood NL Results Lab Laboratory Tests 09/04/17 05:58 A/P-Cardiology Admission Diagnosis Chest pain nonspecific etiology Aortic valve stenosis Paroxysmal atrial fibrillation GERD Admission Status: Observation Assessment/Plan Chest pain nonspecific etiology, atypical in presentation, abnormal stress test with inferior wall ischemia, planning to proceed with cardiac catheterization possible PTCA Gastroesophageal reflux disease, has been using [id number] antiacids. Discussed in length about the need for endoscopy in the near future. Aortic valve stenosis, moderate per echocardiogram in October 2016, planning to repeat echocardiogram. History of Paroxysmal atrial fibrillation, status post cardioversion 2009, has been asymptomatic, refusing anticoagulation, intolerant to Beta Blockers, no further episode of atrial fibrillation were reported Hypertension, continue on current medication and monitor Hyperlipidemia, I will evaluate lipid profile and metabolic profile and continue on current medications and monitor Moderate LVH-continue to monitor. COPD/obstructive sleep apnea using C Pap. Followed by primary care physician Intolerance to beta blockers causing severe bradycardia History of diverticulosis Carotid artery stenosis-patient reports recent carotid duplex done in Dr. Hwang's office. Patient is asking to go home due to feeling uncomfortable on the hospital bed in the hospital if possible, he denied any active chest pain, agreed on returning tomorrow for cardiac catheterization possible PTCA Clinical Quality Measures AMI/AHF: ASA po Prior to arrival: Yes (325 MG ASA) DVT/VTE Risk/Contraindication: Risk Factor Score Per Nursin RFS Level Per Nursing on Admit: 2=Moderate IVA CLINE MD Sep 04, 2017 13:55
--- NOTE | 2017-09-04 13:59 | Progress Note-Hospitalist ---
Standard Progress Note Progress Notes/Assess & Plan Date Seen 09/04/17 Time Seen by Provider: 13:54 Diagnosis Chest Pain Assess & Plan/Chief Complaint The patient is a 76-year-old white male known to me. He was admitted yesterday with epigastric and left lower chest pain. This had been present for some hours prior to this presentation. He at first believed this to be heartburn and took his usual famotidine and Tums without relief. He felt somewhat short of breath but went to the [facility] and swim. The pain did not change during this swim. When he returned home his gave him a full dose, 325 mg, aspirin and took him to the emergency room. On arrival he was given a nitroglycerin and the pain was relieved completely. He has a past history of hypertension. Physical exam shows a white male sitting in the chair at bedside. Lungs are clear to auscultation. CV is regular with a grade 1-2 systolic murmur heard at the right and left second intercostal space. Abdomen is obese. Extremities show no pedal edema. Note: Dr. Delgado would like to perform a coronary angiogram tomorrow. The patient findings his bed extraordinarily uncomfortable and would like to go home and return tomorrow for an outpatient angiogram. This has been okayed by Dr. Delgado. Impression: Chest pain. Plan: Discharge to return for outpatient angiogram tomorrow morning. FOR medications and instructions see discharge sequence Labs Laboratory Tests 09/03/17 11:51 09/04/17 05:58 Final Diagnosis Atypical chest pain MICHAEL VASQUES MD Sep 04, 2017 13:59
--- NOTE | 2017-09-04 14:00 | Discharge Instructions ---
Discharge Instructions Patient Instructions Patient Instructions: Medications as listed on the discharge sequence. Return as outpatient in the morning as directed. Return to The Hospital For: Unrelenting pain prior to scheduled angiogram Activity & Diet Discharge Diet: Other Diet (no food or drink after midnight) Activity as Tolerated: Yes MICHAEL VASQUES MD Sep 04, 2017 14:00
[2017-09-04 15:30] VITALS: BP 181/87
[2017-09-04] MEDS ORDERED: amLODIPine 5 MG (NORVASC) TAB PO NR (15:30)
[2017-09-05] MEDS ORDERED: OMEP20CA12 PO (14:11)
[2017-09-05] MEDS ORDERED: AMLO2.5T PO (15:57)
== END 2017-09-04 11:58 | disposition home or self-care (01) ==
LOC: EDUNIT# 11:41 → ER 11:42 → 4TH 13:47 → UNDOADMOB 13:47 → 4TH 14:30 → UNDODISOB 09-04 16:00
PROVIDERS: ADMIT Family Medicine; ATTEND Family Medicine
DX: R07.89 Other chest pain (principal); I16.0 Hypertensive urgency; K21.9 Gastro-esophageal reflux disease without esophagitis; I48.0 Paroxysmal atrial fibrillation; Z87.891 Personal history of nicotine dependence; E78.5 Hyperlipidemia, unspecified; J44.9 Chronic obstructive pulmonary disease, unspecified; G47.33 Obstructive sleep apnea (adult) (pediatric); I65.29 Occlusion and stenosis of unspecified carotid artery; I35.0 Nonrheumatic aortic (valve) stenosis
CPT/HCPCS: 36415; 71045; 78452; 80048; 80053; 80061; 82962; 83690; 83735; 83874; 84484; 85025; 85027; 85610; 85730; 93005; 93017; 93041; 93306; 96360; G0378

== ENCOUNTER 2017-09-05 11:48 | Day surgery (SDC) | payer MEDICARE, OTHER ==
[~2017-09-05] VITALS: Ht 180.3 cm; Wt 122.5 kg
[2017-09-05] VITALS (8 sets, daily range): BP systolic 158–207; BP diastolic 71–95
[~2017-09-05 11:48] MED LIST changes: +ASCO-262 PO; +BIMA2.5D4 OU; +BNZ40T PO; +CHOL10007 PO; +DIPH25TA65 PO; +LUTE20TA PO; +NAPR220T66 PO
--- OUTSIDE RECORDS SUMMARY | 2017-09-05 11:51 | XMS REPORT | Continuity of Care Document ---
Author Author [facility] Organization [facility] Address Unknown Phone Unavailable Allergies Active Description Code Type Severity Reaction Onset Reported/Identified Relationship to Patient Clinical Status Yes No Known Drug Allergies [id number] Drug Allergy Unknown N/A 07/23/2009 Medications There [...] - 09/03/17 11:51 Lipase 12 U/L 8-78 Capillary blood glucose measurement by glucometer (mass/volume) - 09/03/17 15: 47 Capillary blood glucose measurement by glucometer (mass/volume) 85 mg/dL 70-110 Serum or plasma troponin i.cardiac measurement (mass/volume) - 09/03/17 17:45 Serum or plasma troponin i.cardiac measurement (mass/volume) < ng/ mL <0.30 Serum or plasma troponin i.cardiac measurement (mass/volume) - 09/04/17 00:35 Serum or plasma troponin i.cardiac measurement (mass/volume) < ng/ mL <0.30 Automated blood complete blood count (hemogram) panel - 09/04/17 05:58 Blood leukocytes automated count (number/volume) 5.3 10*3/uL 4.3-11.0 Blood erythrocytes automated count (number/volume) 4.61 10*6/uL 4.35-5.85 Venous blood hemoglobin measurement (mass/volume) 14.3 g/dL 13.3-17.7 Blood hematocrit (volume fraction) 42 % 40-54 Automated erythrocyte mean corpuscular volume 91 [foz_us] 80-99 Automated erythrocyte mean corpuscular hemoglobin (mass per erythrocyte) 31 pg 25-34 Automated erythrocyte mean corpuscular hemoglobin concentration measurement ( mass/volume) 34 g/dL 32-36 Automated erythrocyte distribution width ratio 14.5 % 10.0-14.5 Automated blood platelet count (count/volume) 146 10*3/uL 130-400 Automated blood platelet mean volume measurement 12.0 [foz_us] 7.4-10.4 Whole blood basic metabolic panel - 09/04/17 05:58 Serum or plasma sodium measurement (moles/volume) 141 mmol/L 135-145 Serum or plasma potassium measurement (moles/volume) 3.6 mmol/L 3.6-5.0 Serum or plasma chloride measurement (moles/volume) 106 mmol/L 98-107 Carbon dioxide 26 mmol/L 21-32 Serum or plasma anion gap determination (moles/volume) 9 mmol/L 5-14 Serum or plasma urea nitrogen measurement (mass/volume) 14 mg/dL 7-18 Serum or plasma creatinine measurement (mass/volume) 0.98 mg/dL 0.60-1.30 Serum or plasma urea nitrogen/creatinine mass ratio 14 NRG Serum or plasma creatinine measurement with calculation of estimated glomerular filtration rate > NRG Serum or plasma glucose measurement (mass/volume) 89 mg/dL 70-105 Serum or plasma calcium measurement (mass/volume) 9.8 mg/dL 8.5-10.1 Lipid 1996 panel - 09/04/17 05:58 Serum or plasma triglyceride measurement (mass/volume) 58 mg/dL <150 Serum or plasma cholesterol measurement (mass/volume) 134 mg/dL < 200 Serum or plasma cholesterol in HDL measurement (mass/volume) 41 mg/ dL 40-60 Cholesterol in LDL [mass/volume] in serum or plasma by direct assay 83 mg/dL 1-129 Serum or plasma cholesterol in VLDL measurement (mass/volume) 12 mg/ dL 5-40 Encounters ACCT No. Visit Date/Time Discharge Status Pt. Type Provider Facility Loc./Unit Complaint [id number] 10/23/2016 09:31:00 10/23/2016 23:59:59 CLS Outpatient MARLYN SHORT, IVA Potter [facility] CARD AR,CHF,HTN [id number] 06/11/2015 18:02:00 06/12/2015 17:00:00 DIS Inpatient SUNDAY WILLOUGHBY DO [facility] 4TH [id number] 07/24/2013 20:50:00 07/25/2013 07:10:00 DIS Outpatient [id number] 11/01/2012 13:53:00 11/01/2012 23:59:59 CLS Outpatient [id number] 09/03/2017 12:02:00 Document Registration
[2017-09-05] MEDS ORDERED: NS IV 1000 ML 1,000 ML IV SCH ×2 (12:53→15:55)
[2017-09-05] MEDS ORDERED: LIDOCAINE 1% INJ 50 ML (XYLOCAINE) VIAL ONE (12:55)
[2017-09-05] MEDS ORDERED: HEParin (CATH LAB) 2,000 ML IV ONE (12:55)
[2017-09-05] MEDS ORDERED: OMEP20CA12 PO (14:11)
--- NOTE | 2017-09-05 15:08 | Cardiac Procedure Note-CS/ASA ---
Pre-Procedure Note Pre-Op Procedure Note H&P Reviewed The H&P was reviewed, patient examined and no changes noted. Date H&P Reviewed: Sep 05, 2017 Time H&P Reviewed: 15:08 Conscious Sedation Pre-Proced Time Reviewed: 15:08 ASA Class: 3 Airway Mallampati Classification: ([place] appropriate class) I. II. III, IV Lungs Heart ASA score ASA 1: a normal healthy patient ASA 2: a patient with a mild systemic disease (mid diabetes, controlled hypertension, obesity x ASA 3: a patient with a severe systemic disease that limits activity (angina , COPD, prior Myocardial infarction) ASA 4: a patient with an incapacitating disease that is a constant threat to life (CHF, renal failure) ASA 5: a moribund patient not expected to survive 24 hrs. (ruptured aneurysm) ASA 6: a declared brain patient whose organs are being harvested. For emergent operations, add the letter E after the classification Grade 3 Sedation Plan: Analgesia, Amnesia, Plan communicated to team members, Discussed options with patient/fam, Discussed risks with patient/fam Note The patient is an appropriate candidate to undergo the planned procedure, sedation, and anesthesia. The patient immediately re-assessed prior to indication. IVA CLINE MD Sep 05, 2017 15:08
[2017-09-05] MEDS ORDERED: methylPREDNISolone 125 MG (Solu-MEDROL) VIAL ONE (15:15)
[2017-09-05] MEDS ORDERED: diphenhydrAMINE 50 MG/ML INJ (BENADRYL) ONE (15:15)
[2017-09-05] MEDS ORDERED: fentaNYL INJECTION 100 MCG/2 ML AMP ONE (15:19)
[2017-09-05] MEDS ORDERED: MIDAZOLAM 5 MG/5 ML (VERSED) VIAL ONE (15:20)
[2017-09-05] MEDS ORDERED: ENALAPRILAT 2.5 MG/2 ML (VASOTEC) VIAL IV ONE (15:48)
[2017-09-05] MEDS ORDERED: meTOprolol 5 MG/5 ML (LOPRESSOR) VIAL ONE (15:48)
[2017-09-05] MEDS ORDERED: AMLO2.5T PO (15:57)
--- NOTE | 2017-09-05 15:58 | Discharge Inst-Post CATH ---
Discharge Inst-CATH Post Cardiac Cath D/C Inst Follow Up/Plan Follow-up with Dr. leon's office in 2-4 weeks CARDIAC CATH DISCHARGE INSTRUCTIONS *Hold Metformin for 48 hours post heart cath. ACTIVITY * Go Home directly and rest. * Limit activity of the leg (or wrist if it was used) for 7 days including aerobics, swimming, jogging, bicycling, etc. * Restrict stair-climbing for 7 days if possible, if not, climb up with your non -cath leg, then bring together on the same step. * Avoid lifting, pushing, pulling or excessive movement of the affected extremity for 7 days. * Customary sexual activity may be resumed after 2 days-use caution not to use a position that strains or causes pain to the affected extremity. * No driving for 24 hours. * NO SMOKING. * Avoid straining for bowel movements for 7 days. * Gentle walking on level ground is allowed. * Returning to work will depend on the type of procedure and the results. Your doctor will discuss this with you. CALL YOUR DOCTOR FOR ANY OF THE FOLLOWING: *If bleeding from the puncture site occurs- Apply gentle pressure to site with clean cloth and call your doctor or EMS. * If a knot or lump forms under the skin, increases in size, or causes pain. * If bruising appears to be worsening or moving further down your leg instead of disappearing. * Temperature above 101 F. CARE OF YOUR GROIN INCISION; * Bruising or purple discoloration of the skin near the puncture site is common. * You may shower only, no bathtub bathing for 5 days. Be careful to avoid slipping as your leg may feel stiff. * If a closure device was used on your femoral artery, please see the attached guide regarding care of the device and your leg. * REMOVE the dressing from your groin the next day after your procedure in the shower. CARE OF YOUR WRIST INCISION; * Bruising or purple discoloration of the skin near the puncture site is common. * You may shower. * DO NOT submerge wrist. * Remove dressing in 24 hours. IVA CLINE MD Sep 05, 2017 15:58
[2017-09-05] MEDS ORDERED: PATIENT MAY USE OWN MEDS, ALL PO SCH (16:00)
--- NOTE | 2017-09-05 16:01 | Cardiac Cath Report ---
Cardiac Cath Report Physician (s)/Corporate Quality Engineer (s) Physician IVA CLINE MD Pre-Procedure Diagnosis Pre-Procedure Diagnosis: Coronary artery disease Post-Procedure Note Procedure Start Date: Sep 05, 2017 Name of Procedure: Coronary angiogram Findings/Procedure Note PROCEDURE NOTE: After explaining the procedure to the patient, all pros and cons were explained, all questions were answered. The patient signed the consent and then she was placed on the cardiac catheterization laboratory. The patient was placed on the cardiac catheterization laboratory. Groin was prepped SL fashion local anesthesia was used. Sheath placed in the right femoral artery. Matthew right and left catheter were used to access the coronary system. At the end of the procedure the sheath was removed. Closure device was used FINDINGS: Hemodynamics LV no left ventricular pressure was measured Aorta 184/90 on mean of 83 ANATOMY: Left Main is free of obstructive disease Left Anterior Descending has mild disease nonobstructive disease Left Circumflex has mild disease nonobstructive disease Right Coronory Artery is dominant with mild disease nonobstructive disease CONCLUSION: 1. Mild coronary artery disease nonobstructive disease 2. Patient is known to have moderate to severe aortic valve stenosis, did not cross the aortic valve on this study. 3. Hypertension DISCUSSION AND RECOMMENDATION: medical therapy is recommended no intervention is warranted Anesthesia Type: Conscious Sedation Estimated blood loss (mL): 10 ml Contrast Amount: 45 ml Total Radiation Dose: 998 mGy Post-Procedure Diagnosis Post-operative diagnosis: Chest pain nonspecific etiology Coronary artery disease Aortic valve stenosis Hypertension IVA CLINE MD Sep 05, 2017 16:01
[2017-09-05] MEDS ORDERED: NITRO DRIP 25000 MCG/D5W 250 ML IV ONE (16:06)
[2017-09-05] MEDS ORDERED: cloNIDine 0.1 MG (CATAPRES) TAB PO ONE (17:00)
== END 2017-09-05 20:45 | disposition home or self-care (01) ==
LOC: CATH 11:48 → ICU 17:17 → CATH 20:45
PROVIDERS: ATTEND Internal Medicine Cardiovascular Disease
DX: R07.9 Chest pain, unspecified (principal); I25.10 Atherosclerotic heart disease of native coronary artery without angina pectoris; I35.0 Nonrheumatic aortic (valve) stenosis; I10 Essential (primary) hypertension; I48.0 Paroxysmal atrial fibrillation; E78.5 Hyperlipidemia, unspecified; J44.9 Chronic obstructive pulmonary disease, unspecified; G47.33 Obstructive sleep apnea (adult) (pediatric); I65.29 Occlusion and stenosis of unspecified carotid artery; K21.9 Gastro-esophageal reflux disease without esophagitis
CPT/HCPCS: 87081; 93454

== ENCOUNTER → 2018-05-01 | Day surgery (SDC) | payer MEDICARE, OTHER ==
[~2018-05-01] VITALS: Ht 180.3 cm; Wt 117.0 kg
[~2018-05-01] MED LIST changes: +AMLO2.5T3 PO; +BENA40TA5 PO; -BNZ40T PO; +LIDOCAINE 1% INJ 20 ML 20 ML VIAL ONE; +OMEP20CA12 PO
[2018-05-01 10:29] VITALS: BP 156/104
--- NOTE | 2018-05-01 10:57 | Implantation of Loop Monitor ---
Implant of Loop Monitior IMPLANTATION OF LOOP MONITOR REPORT DATE OF PROCEDURE: 05/01/18 PREOP DIAGNOSIS: Paroxysmal atrial fibrillation POSTOP DIAGNOSIS: Paroxysmal atrial fibrillation PROCEDURE DETAILS: The patient is a 77 male with history of paroxysmal atrial fibrillation requiring long-term surveillance. Therefore implantable loop recorder was discussed and agreed with the patient. Informed consent was taken. All risks and complications were discussed at length. The patient was draped and prepped in the usual sterile fashion. Local anesthesia was lidocaine, which was given in the substernal area close to the 4th intercostal space. Loop monitor Medtronic with serial number Medtronic with serial number [id number] was implanted according to the protocol. Steri-Strips were placed at the end of the procedure. There were no complications and the patient tolerated the procedure well. The device was interrogated with a voltage of. ANESTHESIA: Local anesthesia with lidocaine. COMPLICATIONS: None CONTRAST/FLUOROSCOPY: None CONCLUSION: Successful implantation of reveal device with no complication FINAL DIAGNOSIS: Paroxysmal atrial fibrillation Palpitation Hypertension Hyperlipidemia IVA CLINE MD May 01, 2018 10:57
== END | disposition home or self-care (01) ==
LOC: CATH 10:05
PROVIDERS: ATTEND Internal Medicine Cardiovascular Disease
DX: I48.0 Paroxysmal atrial fibrillation (principal); R00.2 Palpitations; I11.0 Hypertensive heart disease with heart failure; E78.5 Hyperlipidemia, unspecified; I50.9 Heart failure, unspecified; I35.1 Nonrheumatic aortic (valve) insufficiency; I65.29 Occlusion and stenosis of unspecified carotid artery; Z87.891 Personal history of nicotine dependence; J44.9 Chronic obstructive pulmonary disease, unspecified; G47.33 Obstructive sleep apnea (adult) (pediatric); Z79.01 Long term (current) use of anticoagulants; Z79.899 Other long term (current) drug therapy
CPT/HCPCS: 33282

== ENCOUNTER → 2018-05-29 | Outpatient (CLI) | payer MEDICARE, OTHER ==
[~2018-05-29] MED LIST changes: -LIDOCAINE 1% INJ 20 ML 20 ML VIAL ONE
== END ==
LOC: CARD 13:43
PROVIDERS: ATTEND Physician Assistant
DX: I35.1 Nonrheumatic aortic (valve) insufficiency (principal); I11.0 Hypertensive heart disease with heart failure; I50.9 Heart failure, unspecified; E78.5 Hyperlipidemia, unspecified

== ENCOUNTER 2018-06-12 07:36 | Day surgery (SDC) | payer MEDICARE, OTHER ==
[~2018-06-12] VITALS: Ht 180.3 cm; Wt 122.5 kg
[2018-06-12] VITALS (31 sets, daily range): BP systolic 123–214; BP diastolic 50–141
[2018-06-12] MEDS ORDERED: LIDOCAINE 2% VISCOUS 15 ML UDC ONE (07:40)
[2018-06-12] MEDS ORDERED: NS IV 1000 ML 1,000 ML ONE (07:40)
[2018-06-12] MEDS ORDERED: NS IV 1000 ML 1,000 ML IV SCH (07:45)
[2018-06-12 08:11] LABS: BILIRUBIN,URINE NEGATIVE (NEGATIVE); CLARITY,URINE CLEAR; COLOR,URINE YELLOW; GLUCOSE, URINE (UA) NEGATIVE (NEGATIVE); HEMOGLOBIN 16.4 G/DL (13.3-17.7); KETONES,URINE NEGATIVE (NEGATIVE); LEUKOCYTE ESTERASE ,URINE 1+ (NEGATIVE); MEAN PLATELET VOLUME 9.7 FL (7.4-10.4); NITRITE,URINE NEGATIVE (NEGATIVE); PH,URINE 6 (5-9); PROTEIN,URINE 2+ (NEGATIVE); RED BLOOD COUNT 5.44 10^6/uL (4.35-5.85); RED CELL DISTRIBUTION WIDTH 13.7 % (10.0-14.5); UROBILINOGEN,URINE NORMAL (NORMAL)
[2018-06-12] MEDS ORDERED: proPOfol 200 MG/20 ML (DIPRIVAN) VIAL IV ONE ×4 (08:11→12:00)
[2018-06-12] MEDS ORDERED: MIDAZOLAM 2 MG/2 ML (VERSED) VIAL ONE (08:12)
[2018-06-12 08:25] LABS: BACTERIA,URINE NEGATIVE /HPF; WBC,URINE RARE /HPF
[2018-06-12] MEDS ORDERED: APIX5TAB PO (08:30)
[2018-06-12] MEDS ORDERED: ACET-2267 PO (08:31)
[2018-06-12] MEDS ORDERED: FAMO1TAB31 PO (08:32)
[2018-06-12 08:34] LABS: INR 1.2 (0.8-1.4); PROTHROMBIN TIME PATIENT 15.6 SEC (12.2-14.7)
[2018-06-12 08:38] LABS: BILIRUBIN,TOTAL 1.3 MG/DL (0.1-1.0); CALCIUM 9.6 MG/DL (8.5-10.1); CREATININE SERUM 1.21 MG/DL (0.60-1.30); TOTAL PROTEIN 6.6 GM/DL (6.4-8.2)
--- NOTE | 2018-06-12 08:38 | Diagnostic Imaging Report ---
INDICATION: Atrial fibrillation and coronary artery disease. Time of exam 8:02 AM Correlation is made with prior study from 09/03/2017. The heart size is stable. Surgical clips overlie the medial aspect of the right lung. No infiltrate or failure is seen. No effusion or pneumothorax is identified. The heart is mildly enlarged but stable. IMPRESSION: Stable chest. No acute features detected. Dictated by: Dictated on workstation # [id number]
--- OUTSIDE RECORDS SUMMARY | 2018-06-12 08:58 | XMS REPORT | Continuity of Care Document ---
Author Author [facility] Organization [facility] Address Unknown Phone Unavailable Allergies Active Description Code Type Severity Reaction Onset Reported/Identified Relationship to Patient Clinical Status Yes No Known Drug Allergies [id number] Drug Allergy Unknown N/A 07/23/2009 Medications There is no data. Problems Date Dx Coded Attending Type Code Diagnosis Diagnosed By 07/25/2013 BLAISE SHORT, KATIUSKA Riddle Ot 327.23 OBSTRUCTIVE SLEEP APNEA (ADULT) (PEDIATR 06/12/2015 WILLOUGHBY DO, Ot E66.9 OBESITY, UNSPECIFIED 06/12/2015 WILLOUGHBY DO, Ot E78.5 HYPERLIPIDEMIA, UNSPECIFIED 06/12/2015 WILLOUGHBY DO, Ot G47.33 OBSTRUCTIVE SLEEP APNEA (ADULT) (PEDIATR 06/12/2015 WILLOUGHBY DO Ot I10 ESSENTIAL (PRIMARY) HYPERTENSION 06/12/2015 WILLOUGHBY DO, Ot I35.0 NONRHEUMATIC AORTIC (VALVE) STENOSIS 06/12/2015 SUNADY WILLOUGHBY DO, Ot I48.0 PAROXYSMAL ATRIAL FIBRILLATION 06/12/2015 WILLOUGHBY DO, Ot K21.0 GASTRO-ESOPHAGEAL REFLUX DISEASE WITH ES 06/12/2015 WILLOUGHBY DO, Ot Z68.38 BODY MASS INDEX (BMI) 38.0-38.9, ADULT 06/12/2015 WILLOUGHBY DO, Ot Z87.891 PERSONAL HISTORY OF NICOTINE DEPENDENCE 06/12/2015 WILLOUGHBY DO, Ot Z91.14 PATIENT'S OTHER NONCOMPLIANCE WITH MEDIC 10/24/2016 IVA CLINE MD, Ot E78.2 MIXED HYPERLIPIDEMIA 10/24/2016 IVA CLINE MD, Ot I11.0 HYPERTENSIVE HEART DISEASE WITH HEART FA 10/24/2016 IVA CLINE MD, Ot I35.1 NONRHEUMATIC AORTIC (VALVE) INSUFFICIENC 10/24/2016 IVA CLINE MD, Ot I50.22 CHRONIC SYSTOLIC [...] Ot I50.22 CHRONIC SYSTOLIC (CONGESTIVE) HEART FAIL 09/03/2017 KINGA CAGLE Ot 272.4 HYPERLIPIDEMIA NEC/NOS 09/03/2017 KINGA CAGLE Ot 401.9 HYPERTENSION NOS 09/03/2017 KINGA CAGLE Ot 424.0 MITRAL VALVE DISORDER 09/03/2017 KINGA CAGLE Ot 427.31 ATRIAL FIBRILLATION 09/03/2017 KINGA CAGLE Ot 429.3 CARDIOMEGALY 09/03/2017 IVA CLINE MD Ot E78.2 MIXED HYPERLIPIDEMIA 09/03/2017 IVA CLINE MD Ot I11.0 HYPERTENSIVE HEART DISEASE WITH HEART FA 09/03/2017 IVA CLINE MD Ot I35.1 NONRHEUMATIC AORTIC (VALVE) INSUFFICIENC 09/03/2017 IVA CLINE MD Ot I50.22 CHRONIC SYSTOLIC (CONGESTIVE) HEART FAIL 09/04/2017 REYNA SERVIN MD Ot E78.5 HYPERLIPIDEMIA, UNSPECIFIED 09/04/2017 REYNA SERVIN MD Ot G47.33 OBSTRUCTIVE SLEEP APNEA (ADULT) (PEDIATR 09/04/2017 REYNA SERVIN MD Ot I16.0 HYPERTENSIVE URGENCY 09/04/2017 REYNA SERVIN MD Ot I35.0 NONRHEUMATIC AORTIC (VALVE) STENOSIS 09/04/2017 MALATHI MD, REYNA M Ot I48.0 PAROXYSMAL ATRIAL FIBRILLATION 09/04/2017 REYNA SERVIN MD Ot I65.29 OCCLUSION AND STENOSIS OF UNSPECIFIED CA 09/04/2017 REYNA SERVIN MD Ot J44.9 CHRONIC OBSTRUCTIVE PULMONARY DISEASE, U 09/04/2017 REYNA SERVIN MD Ot K21.9 GASTRO-ESOPHAGEAL REFLUX DISEASE WITHOUT 09/04/2017 REYNA SERVIN MD Ot R07.89 OTHER CHEST PAIN 09/04/2017 REYNA SERVIN MD Ot Z87.891 PERSONAL HISTORY OF NICOTINE DEPENDENCE 09/05/2017 IVA CLINE MD Ot E78.5 HYPERLIPIDEMIA, UNSPECIFIED 09/05/2017 IVA CLINE MD Ot G47.33 OBSTRUCTIVE SLEEP APNEA (ADULT) (PEDIATR 09/05/2017 IVA CLINE MD Ot I10 ESSENTIAL (PRIMARY) HYPERTENSION 09/05/2017 IVA CLINE MD Ot I25.10 ATHSCL HEART DISEASE OF [place] CORONARY 09/05/2017 IVA CLINE MD Ot I35.0 NONRHEUMATIC AORTIC (VALVE) STENOSIS 09/05/2017 IVA CLINE MD Ot I48.0 PAROXYSMAL ATRIAL FIBRILLATION 09/05/2017 IVA CLINE MD Ot I65.29 OCCLUSION AND STENOSIS OF UNSPECIFIED CA 09/05/2017 IVA CLINE MD Ot J44.9 CHRONIC OBSTRUCTIVE PULMONARY DISEASE, U 09/05/2017 IVA CLINE MD Ot K21.9 GASTRO-ESOPHAGEAL REFLUX DISEASE WITHOUT 09/05/2017 IVA CLINE MD Ot R07.9 CHEST PAIN, UNSPECIFIED 09/07/2017 IVA CLINE MD Ot E78.5 HYPERLIPIDEMIA, UNSPECIFIED 09/07/2017 IVA CLINE MD Ot G47.33 OBSTRUCTIVE SLEEP APNEA (ADULT) (PEDIATR 09/07/2017 IVA CLINE MD Ot I10 ESSENTIAL (PRIMARY) HYPERTENSION 09/07/2017 IVA CLINE MD Ot I25.10 ATHSCL HEART DISEASE OF [place] CORONARY 09/07/2017 IVA CLINE MD Ot I35.0 NONRHEUMATIC AORTIC (VALVE) STENOSIS 09/07/2017 IVA CLINE MD Ot I48.0 PAROXYSMAL ATRIAL FIBRILLATION 09/07/2017 IVA CLINE MD Ot I65.29 OCCLUSION AND STENOSIS OF UNSPECIFIED CA 09/07/2017 IVA CLINE MD, Ot J44.9 CHRONIC OBSTRUCTIVE PULMONARY DISEASE, U 09/07/2017 IVA CLINE MD Ot K21.9 GASTRO-ESOPHAGEAL REFLUX DISEASE WITHOUT 09/07/2017 IVA CLINE MD Ot R07.9 CHEST PAIN, UNSPECIFIED 05/01/2018 IVA CLINE MD Ot E78.2 MIXED HYPERLIPIDEMIA 05/01/2018 IVA CLINE MD Ot I11.0 HYPERTENSIVE HEART DISEASE WITH HEART FA 05/01/2018 IVA CLINE MD Ot I35.1 NONRHEUMATIC AORTIC (VALVE) INSUFFICIENC 05/01/2018 IVA CLINE MD Ot I50.22 CHRONIC SYSTOLIC (CONGESTIVE) HEART FAIL 05/03/2018 IVA CLINE MD Ot E78.5 HYPERLIPIDEMIA, UNSPECIFIED 05/03/2018 IVA CLINE MD Ot G47.33 OBSTRUCTIVE SLEEP APNEA (ADULT) (PEDIATR 05/03/2018 IVA CLINE MD Ot I11.0 HYPERTENSIVE HEART DISEASE WITH HEART FA 05/03/2018 IVA CLINE MD Ot I35.1 NONRHEUMATIC AORTIC (VALVE) INSUFFICIENC 05/03/2018 IVA CLINE MD Ot I48.0 PAROXYSMAL ATRIAL FIBRILLATION 05/03/2018 IVA CLINE MD Ot I50.9 HEART FAILURE, UNSPECIFIED 05/03/2018 IVA CLINE MD Ot I65.29 OCCLUSION AND STENOSIS OF UNSPECIFIED CA 05/03/2018 IVA CLINE MD, Ot J44.9 CHRONIC OBSTRUCTIVE PULMONARY DISEASE, U 05/03/2018 IVA CLINE MD Ot R00.2 PALPITATIONS 05/03/2018 IVA CLINE MD Ot 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 05/03/2018 IVA CLINE MD, Ot Z79.899 OTHER OFFICE TECHNOLOGY PROFESSOR (CURRENT) DRUG THERAPY 05/03/2018 IVA CLINE MD, Ot Z87.891 PERSONAL HISTORY OF NICOTINE DEPENDENCE Procedures Code Description Performed By Performed On 99.61 ATRIAL CARDIOVERSION 08/03/2009 Results Test Result Range Complete blood count [...] VLDL measurement (mass/volume) 12 mg/ dL 5-40 Methicillin resistant Staphylococcus aureus (MRSA) screening culture - 13:16 Methicillin resistant Staphylococcus aureus (MRSA) screening culture NEG [facility] Automated blood complete blood count (hemogram) panel - 06/12/18 07:49 Blood leukocytes automated count (number/volume) 6.0 10*3/uL 4.3-11.0 Blood erythrocytes automated count (number/volume) 5.44 10*6/uL 4.35-5.85 Venous blood hemoglobin measurement (mass/volume) 16.4 g/dL 13.3-17.7 Blood hematocrit (volume fraction) 48 % 40-54 Automated erythrocyte mean corpuscular volume 89 [foz_us] 80-99 Automated erythrocyte mean corpuscular hemoglobin (mass per erythrocyte) 30 pg 25-34 Automated erythrocyte mean corpuscular hemoglobin concentration measurement ( mass/volume) 34 g/dL 32-36 Automated erythrocyte distribution width ratio 13.7 % 10.0-14.5 Automated blood platelet count (count/volume) 209 10*3/uL 130-400 Automated blood platelet mean volume measurement 9.7 [foz_us] 7.4-10.4 Complete urinalysis with reflex to culture - 06/12/18 07:49 Urine color determination YELLOW NRG Urine clarity determination CLEAR NR Urine pH measurement by test strip 6 5-9 Specific gravity of urine by test strip 1.015 1.016- 1.022 Urine protein assay by test strip, semi-quantitative 2+ NEGATIVE Urine glucose detection by automated test strip NEGATIVE NEGATIVE Erythrocytes detection in urine sediment by light microscopy 2+ NEGATIVE Urine ketones detection by automated test strip NEGATIVE NEGATIVE Urine nitrite detection by test strip NEGATIVE NEGATIVE Urine total bilirubin detection by test strip NEGATIVE NEGATIVE Urine urobilinogen measurement by automated test strip (mass/volume) NORMAL NORMAL Urine leukocyte esterase detection by dipstick 1+ NEGATIVE Automated urine sediment erythrocyte count by microscopy (number/high power field) [HPF] [facility] Automated urine sediment leukocyte count by microscopy (number/high power field ) RARE NRG Bacteria detection in urine sediment by light microscopy NEGATIVE NRG Crystals detection in urine sediment by light microscopy NONE NRG Casts detection in urine sediment by light microscopy NONE NRG Mucus detection in urine sediment by light microscopy NEGATIVE NRG Complete urinalysis with reflex to culture NO NRG Encounters ACCT No. Visit Date/Time Discharge Status Pt. Type Provider Facility Loc./Unit Complaint [id number] 05/29/2018 13:43:00 05/29/2018 23:59:59 CLS Outpatient KINGA CAGLE [facility] CARD CAROTID ARTERY STENOSIS [id number] 05/01/2018 10:05:00 05/01/2018 23:59:59 CLS Outpatient IVA CLINE MD [facility] ATRIAL FIB [id number] 09/05/2017 11:48:00 09/05/2017 20:45:00 DIS Outpatient IVA CLINE MD [facility] CATH CP,SOB,HTN [id number] 09/03/2017 13:47:00 09/04/2017 16:00:00 DIS Inpatient REYNA SERVIN MD [facility] 4TH CP/SOB [id number] 10/23/2016 09:31:00 10/23/2016 23:59:59 CLS Outpatient IVA CLINE MD [facility] CARD AR,CHF,HTN [id number] 06/11/2015 18:02:00 06/12/2015 17:00:00 DIS Inpatient SUNDAY WILLOUGHBY DO [facility] 4TH CHEST PAIN [id number] 07/24/2013 20:50:00 07/25/2013 07:10:00 DIS Outpatient KATIUSKA WELSH MD [facility] SLEEP EDIN,SNORING,HTN [id number] 11/01/2012 13:53:00 11/01/2012 23:59:59 CLS Outpatient KINGA CAGLE [facility] CARD PAF,HLP,HTN, SATYA [id number] 06/12/2018 09:00:00 PEN Preadmit IVA CLINE MD [facility] CATH AFIB,CAD,HTN,COPD,HLP [id number] 07/30/2009 18:33:00 Document Registration
[2018-06-12] MEDS ORDERED: AMIODARONE FOR BOLUS 150 MG in D5W 100 ML IVPB 100 ML IV ONE (09:30)
[2018-06-12] MEDS ORDERED: AMIODARONE INJECTION 450 MG in D5W IV SOLUTION (EXCEL) 250 ML IV SCH (09:30)
[2018-06-12] MEDS ORDERED: ENOXAPARIN 300 MG/3 ML (LOVENOX) MULTI-DOSE VIAL SQ SCH (09:30)
--- NOTE | 2018-06-12 09:37 | Anesthesia-Procedure Note ---
Procedures/Interventions Procedure Start/Stop/Diagnosis Date of Procedure: Jun 12, 2018 Start Time: 09:18 Referring Physician: Toñito Preprocedural Diagnosis: Called to assist with sedation for VIRI. Allergies/NPO status verified. Stop Time: 09:27 VIRI/Cardioversion Anesthesia Type: mac ASA Class: 3 Medications Propofol 70mg IV titrated to effect, Versed 2mg IV Monitors and Equipment: BP Cuff - Left, Continuous EKG, End Tidal CO2, IV, Pulse Oximeter JACY HSU CRNA Jun 12, 2018 09:37
--- NOTE | 2018-06-12 11:38 | Cardiac Procedure Note-CS/ASA ---
Pre-Procedure Note Pre-Op Procedure Note H&P Reviewed The H&P was reviewed, patient examined and no changes noted. Date H&P Reviewed: Jun 12, 2018 Time H&P Reviewed: 11:37 Conscious Sedation Pre-Proced Time 11:38 ASA Score 3 For ASA 3 and 4: Consider anesthesia and medical clearance. Also, for patients with a history of failed moderate sedation consider anesthesia. Airway Lungs Heart ASA score ASA 1: a normal healthy patient ASA 2: a patient with a mild systemic disease (mid diabetes, controlled hypertension, obesity x ASA 3: a patient with a severe systemic disease that limits activity (angina , COPD, prior Myocardial infarction) ASA 4: a patient with an incapacitating disease that is a constant threat to life (CHF, renal failure) ASA 5: a moribund patient not expected to survive 24 hrs. (ruptured aneurysm) ASA 6: a declared brain patient whose organs are being harvested. For emergent operations, add the letter E after the classification Mallampati Classification Grade 3 Sedation Plan Analgesia, Amnesia, Plan communicated to team members, Discussed options with patient/fam, Discussed risks with patient/fam The patient is an appropriate candidate to undergo the planned procedure, sedation, and anesthesia. The patient immediately re-assessed prior to indication. IVA CLINE MD Jun 12, 2018 11:38
--- NOTE | 2018-06-12 11:46 | Cardioversion ---
Cardioversion PROCEDURE PHYSICIAN: Iva Delgado DATE OF PROCEDURE: 06/12/18 DIRECT EXTERNAL ELECTRICAL CARDIOVERSION: Indications: Atrial Fibrillation with rapid ventricular rate Preoperative diagnoses: Atrial Fibrillation with rapid ventricular rate Postoperative diagnosis: Sinus rhythm, Successful Electrical Cardioversion History: Anesthesia: By Anesthesia services Complications: None Specimen: None Contrast: 0 Flouroscopy: none Procedure Details: The patient was brought the labor training manager after informed consent was taken, all the risks and complications were explained including the risk of stroke. Electrical cardioversion was carried out with anesthesia support with propofol. 200 joules of synchronized shock was delivered through external patches which promptly restored sinus rhythm. The patient tolerated the procedure well. Conclusions: successful electrical cardioversion with no complication Final Diagnosis: atrial fibrillation Tachycardia Hypertension IVA DELGADO MD Jun 12, 2018 11:46
--- NOTE | 2018-06-12 11:50 | Anesthesia-Procedure Note ---
Procedures/Interventions Procedure Start/Stop/Diagnosis Date of Procedure: Jun 12, 2018 Start Time: 11:42 Referring Physician: Sandy Brief History Cardioversion post VIRI and amiodarone bolus/infusion Stop Time: 11:46 VIRI/Cardioversion Anesthesia Type: mac ASA Class: 3 Medications Propofol 70mg IV given titrated to effect. See nurses notes for details. Monitors and Equipment: BP Cuff - Left, Continuous EKG, End Tidal CO2, IV, Pulse Oximeter JACY HSU CRNA Jun 12, 2018 11:50
[2018-06-12] MEDS ORDERED: AMIODARONE 200 MG (CORDARONE) TAB PO SCH (12:00)
[2018-06-12] MEDS ORDERED: NON-FORMULARY MEDICATION 1 EA EA (Acetaminophen (Tylenol Extra Strength) 1,000 MG) PO PRN (12:00)
[2018-06-12] MEDS ORDERED: PATIENT MAY USE OWN MEDS, ALL MC SCH (12:00)
[2018-06-12] MEDS ORDERED: AMIO200T4 PO (13:07)
[2018-06-12] MEDS ORDERED: ACETAMINOPHEN 500 MG TAB (TYLENOL) PO PRN (13:30)
[2018-06-12] MEDS ORDERED: APIXABAN 5 MG (ELIQUIS) TABLET PO SCH ×2 (21:00)
[2018-06-12] MEDS ORDERED: OMEPRAZOLE 20 MG (PriLOSEC) CAP PO SCH (21:00)
[2018-06-12] MEDS ORDERED: OMEPRAZOLE 20 MG (PriLOSEC) CAP NON-FORMULARY PO SCH (21:00)
[2018-06-12] MEDS ORDERED: NON-FORMULARY MEDICATION 1 EA EA (Bimatoprost (Lumigan) 1 DROP) OU SCH (21:00)
[2018-06-12] MEDS ORDERED: PANTOPRAZOLE 20 MG TABLET (PROTONIX) PO SCH (21:00)
[2018-06-13] MEDS ORDERED: amLODIPine 2.5MG (NORVASC) TAB PO SCH ×2 (09:00)
[2018-06-13] MEDS ORDERED: NON-FORMULARY MEDICATION 1 EA EA (Lutein 20 MG) PO SCH (09:00)
[2018-06-13] MEDS ORDERED: LUTEIN 20 MG PO SCH (09:00)
[2018-06-13] MEDS ORDERED: BENAZEPRIL 40 MG PO SCH (09:00)
[2018-06-13] MEDS ORDERED: lisINopril 40 MG (PRINIVIL) TABLET PO SCH (09:00)
== END 2018-06-12 17:30 | disposition home or self-care (01) ==
LOC: CATH 07:36 → ICU 10:25 → CATH 17:30
PROVIDERS: ATTEND Internal Medicine Cardiovascular Disease
DX: I48.0 Paroxysmal atrial fibrillation (principal); I11.0 Hypertensive heart disease with heart failure; I50.9 Heart failure, unspecified; I25.10 Atherosclerotic heart disease of native coronary artery without angina pectoris; E78.5 Hyperlipidemia, unspecified; I35.1 Nonrheumatic aortic (valve) insufficiency; J44.9 Chronic obstructive pulmonary disease, unspecified; G47.33 Obstructive sleep apnea (adult) (pediatric); E66.9 Obesity, unspecified; Z68.37 Body mass index [BMI] 37.0-37.9, adult; Z79.899 Other long term (current) drug therapy
CPT/HCPCS: 36415; 71045; 80053; 80061; 81000; 85027; 85610; 85730; 87081; 93005; 93312; 93320; 93325

== ENCOUNTER → 2019-07-21 | Outpatient (CLI) | payer MEDICARE, OTHER ==
[~2019-07-21] MED LIST changes: +ACET-2267 PO; +AMIO200T4 PO; -AMLO2.5T3 PO; +AMLO2.5T4 PO; +APIX5TAB PO; +FAMO-208 PO; +OMEP-280 PO; -OMEP20CA12 PO
--- NOTE | 2019-07-21 09:17 | Diagnostic Imaging Report ---
PROCEDURE: US Gallbladder. TECHNIQUE: Multiple real-time grayscale images were obtained over the right upper quadrant in various projections. INDICATION: Abdominal pain. The liver is normal in size at 16.1 cm. No discrete liver mass is detected. The portal vein is patent and shows normal direction flow. Gallbladder is without stones or sludge. No wall thickening or biliary ductal dilatation is identified. Pancreas was not visualized due to patient body habitus and bowel gas. Aorta is poorly visualized. IVC appears patent. Right kidney is without calculi or hydronephrosis. There is no ascites. IMPRESSION: Limited study due to patient body habitus. No significant abnormality is identified. No findings to suggest cholelithiasis or acute cholecystitis are identified. Dictated by: Dictated on workstation # [id number]
== END ==
LOC: RAD 07:21
PROVIDERS: ATTEND Internal Medicine
DX: R10.13 Epigastric pain (principal)
CPT/HCPCS: 76705

== ENCOUNTER → 2020-10-12 | Outpatient (CLI) | payer MEDICARE, OTHER ==
[~2020-10-12] MED LIST changes: -AMIO200T4 PO; +AMIO200T6 PO; -OMEP-280 PO; +OMEP20CA18 PO
== END ==
LOC: CARD 13:26
PROVIDERS: ATTEND Physician Assistant
DX: I11.9 Hypertensive heart disease without heart failure (principal); I08.0 Rheumatic disorders of both mitral and aortic valves
CPT/HCPCS: 93306

== ENCOUNTER → 2021-11-28 | Outpatient (CLI) | payer MEDICARE, OTHER ==
[~2021-11-28] MED LIST changes: -AMIO200T6 PO; +AMIO200T65 PO; -BENA40TA5 PO; +BENA40TA84 PO
== END ==
LOC: CARD 12:43
PROVIDERS: ATTEND Internal Medicine Cardiovascular Disease
DX: I11.9 Hypertensive heart disease without heart failure (principal)
CPT/HCPCS: 93306

== ENCOUNTER → 2022-09-01 | Outpatient (CLI) | payer MEDICARE, OTHER ==
--- NOTE | 2022-09-01 17:05 | Diagnostic Imaging Report ---
PROCEDURE: US Bilateral lower extremity arterial. TECHNIQUE: Multiple real-time grayscale images are obtained through both lower extremity arterial systems with color Doppler imaging and color Doppler spectral analysis. INDICATION: Claudication Grayscale images show diffuse atherosclerotic plaque throughout the arterial systems of both legs. The patient has multiphasic wave patterns from the groins to the knees with normal velocities and transitions. There is monophasic wave patterns in the dorsalis pedis and posterior tibial arteries in the ankles with decreased velocities. IMPRESSION: Diffuse atherosclerotic change. There to appears be some more significant disease of the arterial system below the knees where the wave patterns are monophasic and the velocities are reduced. Dictated by: Dictated on workstation # [id number]
== END ==
LOC: RAD 15:15
PROVIDERS: ATTEND Internal Medicine
DX: I73.9 Peripheral vascular disease, unspecified (principal); I25.10 Atherosclerotic heart disease of native coronary artery without angina pectoris
CPT/HCPCS: 93925

== ENCOUNTER → 2023-06-06 | Day surgery (SDC) | payer MEDICARE, OTHER ==
[~2023-06-06] VITALS: Ht 180.3 cm; Wt 122.5 kg
[~2023-06-06] MED LIST changes: +LIDOCAINE 1% INJ 20 ML VIAL INJ ONE; +LIDOCAINE 1% INJ 20 ML VIAL ONE
[2023-06-06 08:21] VITALS: BP 162/88
--- NOTE | 2023-06-06 09:23 | Implantation of Loop Monitor ---
Implant of Loop Monitior IMPLANTATION OF LOOP MONITOR REPORT DATE OF PROCEDURE: 06/06/23 PREOP DIAGNOSIS: Paroxysmal atrial fibrillation POSTOP DIAGNOSIS: Paroxysmal atrial fibrillation PROCEDURE DETAILS: The patient is a 82 male with history of paroxysmal atrial fibrillation requiring long-term surveillance. Patient had loop monitor that has a depleted battery. We discussed extraction of the device and placement of a new device. Patient was placed on the cardiac catheterization laboratory, using aseptic technique, local anesthesia applied. Skin incision was made and the depleted battery loop was extracted. A new device was implanted using [employer] device with serial number [id number] skin was closed with continuous suture. No complication noted ANESTHESIA: Local anesthesia with lidocaine. COMPLICATIONS: None CONTRAST/FLUOROSCOPY: None CONCLUSION: Successful extraction of a depleted loop monitor device and implantation of a n ew device without complication FINAL DIAGNOSIS: Paroxysmal atrial fibrillation Palpitation Hypertension IVA CLINE MD Jun 06, 2023 09:23
== END ==
LOC: CATH 07:58
PROVIDERS: ATTEND Physician Assistant
DX: I48.0 Paroxysmal atrial fibrillation (principal); I10 Essential (primary) hypertension; E66.9 Obesity, unspecified; I25.10 Atherosclerotic heart disease of native coronary artery without angina pectoris; I35.0 Nonrheumatic aortic (valve) stenosis; I50.22 Chronic systolic (congestive) heart failure; I11.0 Hypertensive heart disease with heart failure; J44.9 Chronic obstructive pulmonary disease, unspecified; G47.33 Obstructive sleep apnea (adult) (pediatric); K21.9 Gastro-esophageal reflux disease without esophagitis; E78.2 Mixed hyperlipidemia; I65.23 Occlusion and stenosis of bilateral carotid arteries; Z68.37 Body mass index [BMI] 37.0-37.9, adult; Z87.891 Personal history of nicotine dependence; Z95.2 Presence of prosthetic heart valve; Z99.81 Dependence on supplemental oxygen; Z79.899 Other long term (current) drug therapy; Z87.19 Personal history of other diseases of the digestive system; Z79.01 Long term (current) use of anticoagulants
CPT/HCPCS: 33285; 33286; C1764